=== PATIENT | male | born 1955 | race American Indian/Alaskan Native ===

== ENCOUNTER 2017-08-15 12:18 | Emergency (ER) | payer SELFPAY ==
[2017-08-15 12:23] VITALS: BP 117/73
--- NOTE | 2017-08-15 14:48 | Emergency Department Report ---
- General Chief Complaint: Upper Respiratory Infection Stated Complaint: NAUSEA Time Seen by Provider: 08/15/17 14:39 Source: patient Mode of arrival: Ambulatory Limitations: No Limitations - History of Present Illness Initial Comments: 62-year-old male with a past medical history of hypertension medication presents to the hospital complains of 3 weeks of cough that is occasionally productive, mild bitemporal intermittent headache, itchy throat, and nasal congestion. Patient states he is affected by pollen and has seasonal allergies. Not taking any medications currently. No fever, chest pain, or shortness of breath reported. Intermittent nausea reported without vomiting. - Related Data Previous Rx's Medication Instructions Recorded Last Taken Type Cetirizine HCl [Zyrtec] 10 mg PO DAILY PRN #30 tablet 08/15/17 Unknown Rx Allergies Allergy/AdvReac Type Severity Reaction Status Date / Time No Known Allergies Allergy Unverified 06/23/13 14:20 ED Review of Systems ROS: Stated complaint: NAUSEA Other details as noted in HPI Comment: All other systems reviewed and negative ED Past Medical Hx - Past Medical History Hx Hypertension: Yes - Surgical History Past Surgical History?: No - Social History Smoking Status: Current Every Day Smoker Substance Use Type: Alcohol - Medications Home Medications: Home Medications Medication Instructions Recorded Confirmed Last Taken Type Cetirizine HCl [Zyrtec] 10 mg PO DAILY PRN #30 tablet 08/15/17 Unknown Rx ED Physical Exam - General Limitations: No Limitations - Other Other exam information: General: No limitations, disheveled poor hygiene Head exam: Atraumatic, normocephalic Eyes exam: Normal appearance ENT: Moist mucous membrane, nasal congestion, no sinus tenderness Neck exam: Normal inspection, full range of motion, no meningismus nontender Respiratory exam: Clear to auscultation bilateral, no wheezes, rales, crackles Cardiovascular: Normal rate and rhythm, normal heart sounds Abdomen: Soft, nondistended, and nontender, with normal bowel sounds, no rebound, or guarding Extremity: Full range of motion normal inspection no deformity Back: Normal Inspection, full range of motion, no tenderness Neurologic: Alert, oriented x3, cranial nerves intact, no motor or sensory deficit Psychiatric: normal affect, normal mood Skin: Warm, dry, intact ED Course Vital Signs 08/15/17 12:20 Temperature 98.3 F Pulse Rate 83 Respiratory 16 Rate Blood Pressure 117/73 O2 Sat by Pulse 98 Oximetry ED Medical Decision Making - Medical Decision Making Patient have his seasonal allergies and would be treated symptomatically with medication and do not contain decongestant. Although patient has history of hypertension blood pressures normal today. - Differential Diagnosis seasonal allergies, URI, conjunctivitis, sinusitis Critical Care Time: No Critical care attestation.: If time is entered above; I have spent that time in minutes in the direct care of this critically ill patient, excluding procedure time. ED Disposition Clinical Impression: Seasonal allergies Disposition: - TO HOME OR SELFCARE Is pt being admited?: No Does the pt Need Aspirin: No Condition: Stable Instructions: Allergies (ED) Additional Instructions: Take the medication as prescribed. Do not use [id number] decongestants because they may cause elevation in blood pressure. Follow up with your primary care doctor or the doctor provided. Return if symptoms worsen as indicated by her discharge instructions. Prescriptions: Cetirizine HCl [Zyrtec] 10 mg PO DAILY PRN #30 tablet PRN Reason: Allergy Symptoms Referrals: PRIMARY CARE [Primary Care Provider] - 3-[address] [facility] [Provider Group] - 3-5 Days Time of Disposition: 14:47
== END 2017-08-15 14:51 | disposition home or self-care (01) ==
LOC: ED 12:18
DX: J30.2 Other seasonal allergic rhinitis (principal); I10 Essential (primary) hypertension; F17.200 Nicotine dependence, unspecified, uncomplicated
CPT/HCPCS: 99282